=== PATIENT | male | born 1970 | race Two or more races ===

== ENCOUNTER 2023-05-13 09:12 | Day surgery (SDC) | payer OTHER ==
[2023-05-09 13:49] VITALS: BMI 23.9
[2023-05-13] MEDS ORDERED: ePHEDrine SULFATE 50 MG/1 ML AMPULE ONE (09:35)
[2023-05-13 10:17] VITALS: RESP 20; TEMP 97.2
[2023-05-13 10:36] VITALS: BP 100/60; PULSE 80
== END 2023-05-13 10:36 | disposition home or self-care (01) ==
LOC: FASU-ENDO 09:12
PROVIDERS: ATTEND Internal Medicine Gastroenterology
PROC: 0DBH8ZX Excision of Cecum, Via Natural or Artificial Opening Endoscopic, Diagnostic (ICD-10-PCS; principal; 2023-05-13 09:48)
DX: Z12.11 Encounter for screening for malignant neoplasm of colon (principal); K63.5 Polyp of colon; K57.30 Diverticulosis of large intestine without perforation or abscess without bleeding; K64.0 First degree hemorrhoids; K64.8 Other hemorrhoids
CPT/HCPCS: 88305-TC